=== PATIENT | female | born 1995 | race Caucasian/White ===

== ENCOUNTER 2018-10-06 18:26 | Outpatient (CLI) | payer OTHER ==
[~2018-10-06] VITALS: Ht 162.6 cm; Wt 118.1 kg
[2018-10-06 18:36] VITALS: BP 110/62
== END 2018-10-06 20:23 | disposition home or self-care (01) ==
LOC: LDOP 18:26
PROVIDERS: ATTEND Obstetrics & Gynecology
DX: O42.913 Preterm premature rupture of membranes, unspecified as to length of time between rupture and onset of labor, third trimester (principal); Z3A.33 33 weeks gestation of pregnancy
CPT/HCPCS: 59025; 84112; 99201; G0463

== ENCOUNTER 2018-11-21 21:15 | Outpatient (CLI) | payer MEDICAID, OTHER ==
[~2018-11-21] VITALS: Ht 162.6 cm; Wt 122.5 kg
[2018-11-21 21:35] VITALS: BP 132/85
== END 2018-11-21 22:18 | disposition home or self-care (01) ==
LOC: LDOP 21:15
PROVIDERS: ATTEND Obstetrics & Gynecology
DX: O26.893 Other specified pregnancy related conditions, third trimester (principal); Z3A.40 40 weeks gestation of pregnancy; R10.9 Unspecified abdominal pain
CPT/HCPCS: 59025; 99211; G0463

== ENCOUNTER 2018-11-23 08:28 | Inpatient (IN) | payer MEDICAID ==
[~2018-11-23] VITALS: Ht 162.6 cm; Wt 125.9 kg
[2018-11-23 09:00] VITALS: BP 145/81
[2018-11-23] MEDS ORDERED: D5%-LACTATED RINGERS 1,000 ML IV SCH (09:11)
[2018-11-23] MEDS ORDERED: OXYTOCIN 30U/ 0.9% NaCL 500ML 500 ML IV ONE (09:11)
[2018-11-23] MEDS ORDERED: FENTANYL/BUPIV./NS/PF 250 ML EPIDCONT SCH ×2 (09:14→16:40)
[2018-11-23] MEDS ORDERED: PREN1TAB60 PO (09:25)
[2018-11-23] MEDS ORDERED: FENTANYL PF 500 MCG, BUPIVACAINE/PF 0.5%, 30ML 62.5 ML in SODIUM CHLORIDE 0.9% 177.5 ML EPIDCONT SCH (09:30)
[2018-11-23] MEDS ORDERED: ONDANSETRON 2MG/ML, 2ML IVPush PRN (09:30)
[2018-11-23] MEDS ORDERED: FENTANYL PF 100 MCG/2ML IVPush PRN (09:30)
[2018-11-23] MEDS ORDERED: PLEASE ENTER HEIGHT AND WEIGHT MC SCH (09:30)
[2018-11-23] MEDS ORDERED: NEWBORN KIT ONE (09:36)
[2018-11-23] MEDS ORDERED: MISOPROSTOL 200 MCG TABLET ONE (09:43)
[2018-11-23] MEDS ORDERED: LIDOCAINE 1%, 20ML ONE (09:43)
[2018-11-23 09:50] LABS: BASOPHILS # (AUTO) 0.08 x10^3/uL (0-0.1); BASOPHILS % (AUTO) 1 % (0-1); EOSINOPHILS # (AUTO) 0.02 x10^3/uL (0-0.4); EOSINOPHILS % (AUTO) 0 % (1-7); LYMPHOCYTES # (AUTO) 1.79 x10^3/uL (1-3.4); LYMPHOCYTES % (AUTO) 14 % (22-44); MD NO; MEAN CORPUSCULAR HEMOGLOBIN 29.3 pg (27.0-34.8); MEAN CORPUSCULAR HGB CONC 33.3 g/dL (32.4-35.8); MONOCYTES # (AUTO) 0.68 x10^3/uL (0.2-0.8); MONOCYTES % (AUTO) 5 % (2-9); NEUTROPHILS # (AUTO) 9.98 x10^3/uL (1.8-6.8); NEUTROPHILS % (AUTO) 80 % (42-75); PLATELET COUNT 223 x10^3/uL (130-400); RED BLOOD COUNT 4.38 x10^6/uL (3.82-5.3); RED CELL DISTRIBUTION WIDTH 13.6 % (9.6-15.2)
[2018-11-23] MEDS: LACTATED RINGERS 1,000 ML IV SCH ×3 (09:50→15:51)
[2018-11-23] MEDS ORDERED: OXYTOCIN 30U/ 0.9% NaCL 500ML 500 ML ONE (10:12)
[2018-11-23 10:25] VITALS: BP 145/81
[2018-11-23] MEDS ORDERED: LACTATED RINGERS 1,000 ML IV SCH (16:40)
[2018-11-23] MEDS ORDERED: EPHEDRINE 50 MG/ML, 1ML IVPush PRN (17:00)
[2018-11-23] MEDS ORDERED: LACTATED RINGERS 1,000 ML IVBOLUS PRN (17:00)
[2018-11-23] MEDS ORDERED: NALOXONE 0.4 MG/ML, 1ML IVPush PRN (17:00)
[2018-11-24] MEDS ORDERED: METOCLOPRAMIDE 5 MG/ML, 2ML ONE (05:37)
[2018-11-24] MEDS ORDERED: SODIUM CITRATE/CITRIC ACID 15 ML UDC ONE (05:37)
[2018-11-24] MEDS ORDERED: SODIUM CITRATE/CITRIC ACID 30 ML UDC PO ONE (06:00)
[2018-11-24] MEDS ORDERED: LACTATED RINGERS 1,000 ML IVBOLUS ONE (06:00)
[2018-11-24] MEDS ORDERED: METOCLOPRAMIDE 5 MG/ML, 2ML IV ONE (06:00)
[2018-11-24] MEDS: LACTATED RINGERS 1,000 ML IV SCH ×4 (06:23→17:11)
[2018-11-24] MEDS ORDERED: LACTATED RINGERS 1,000 ML IV SCH (06:23)
[2018-11-24] MEDS ORDERED: DIPH,PERTUSS(ACELL),TET VAC/PF NC IM-VACC PRN (06:30)
[2018-11-24] MEDS ORDERED: ONDANSETRON 2MG/ML, 2ML IV PRN (06:30)
[2018-11-24] MEDS ORDERED: MISOPROSTOL 200 MCG TABLET PR PRN (06:30)
[2018-11-24] MEDS ORDERED: CALCIUM CARBONATE 500 MG TAB.CHEW PO PRN (06:30)
[2018-11-24] MEDS ORDERED: MEASLES,MUMPS&RUBELLA VACC/PF 0.5 ML SQ-VACC PRN (06:30)
[2018-11-24] MEDS ORDERED: MORPHINE SULFATE 4 MG/ML, 1ML IVPush PRN ×3 (06:30→08:20)
[2018-11-24] MEDS ORDERED: FENTANYL PF 100 MCG/2ML ONE ×2 (06:53→08:44)
[2018-11-24] MEDS ORDERED: morphine SULFATE 10 MG/ML, 1ML ONE (07:17)
[2018-11-24] MEDS ORDERED: CEFAZOLIN 1,000 MG ONE (07:17)
[2018-11-24] MEDS ORDERED: OXYTOCIN 10 UNITS/ML, 1ML ONE (07:17)
[2018-11-24] MEDS ORDERED: OXYTOCIN 30U/ 0.9% NaCL 500ML 500 ML ONE (07:20)
[2018-11-24] MEDS ORDERED: MORPHINE SULFATE 4 MG/ML, 1ML ONE (08:19)
[2018-11-24] MEDS ORDERED: OXYcodone 5 MG/5 ML ORAL.SOL UDC ONE (08:19)
[2018-11-24] MEDS ORDERED: OXYcodone 5 MG/5 ML ORAL.SOL UDC PO PRN ×2 (08:25→08:30)
[2018-11-24] MEDS ORDERED: FENTANYL PF 100 MCG/2ML IVPush PRN ×2 (08:45→08:50)
[2018-11-24] MEDS: OXYTOCIN 30U/ 0.9% NaCL 500ML 500 ML IV SCH ×2 (08:48→16:23)
[2018-11-24] MEDS: PRENATAL VIT/IRON/FA 1 EACH TABLET PO SCH (09:00)
[2018-11-24] MEDS: KETOROLAC 30 MG/1 ML IV SCH ×3 (11:04→22:27)
[2018-11-24 14:30] VITALS: BP 106/70
[2018-11-24] MEDS: OXYcodone IR 5MG TABLET PO PRN ×2 (14:50→22:28)
[2018-11-24 15:20] VITALS: BP 106/70
[2018-11-24] MEDS ORDERED: PROPOFOL 10 MG/ML, 20ML ONE (15:57)
[2018-11-24 16:27] LABS: BASOPHILS # (AUTO) 0.02 x10^3/uL (0-0.1); BASOPHILS % (AUTO) 0 % (0-1); EOSINOPHILS # (AUTO) 0.01 x10^3/uL (0-0.4); EOSINOPHILS % (AUTO) 0 % (1-7); LYMPHOCYTES # (AUTO) 1.14 x10^3/uL (1-3.4); LYMPHOCYTES % (AUTO) 7 % (22-44); MD NO; MEAN CORPUSCULAR HGB CONC 32.9 g/dL (32.4-35.8); MEAN CORPUSCULAR VOLUME 88.2 fL (80-100); MEAN PLATELET VOLUME 10.4 fL (7.4-10.4); MONOCYTES # (AUTO) 1.15 x10^3/uL (0.2-0.8); MONOCYTES % (AUTO) 7 % (2-9); NEUTROPHILS # (AUTO) 13.42 x10^3/uL (1.8-6.8); NEUTROPHILS % (AUTO) 85 % (42-75); PLATELET COUNT 194 x10^3/uL (130-400); RED BLOOD COUNT 3.66 x10^6/uL (3.82-5.3); RED CELL DISTRIBUTION WIDTH 13.6 % (9.6-15.2)
[2018-11-24 20:00] VITALS: BP 122/81
[2018-11-24] MEDS: DOCUSATE 100 MG CAPSULE PO PRN (22:27)
[2018-11-24 23:00] VITALS: BP 115/76
[2018-11-24] MEDS: SIMETHICONE 80 MG CHEW TAB PO PRN (23:09)
[2018-11-25] MEDS: LACTATED RINGERS 1,000 ML IV SCH ×2 (01:11→02:23)
[2018-11-25] MEDS: OXYTOCIN 30U/ 0.9% NaCL 500ML 500 ML IV SCH (02:23)
[2018-11-25 03:30] VITALS: BP 110/70
[2018-11-25] MEDS: OXYcodone IR 5MG TABLET PO PRN ×2 (03:32→08:19)
[2018-11-25] MEDS: SIMETHICONE 80 MG CHEW TAB PO PRN ×2 (03:32→08:18)
[2018-11-25] MEDS: KETOROLAC 30 MG/1 ML IV SCH ×3 (06:21→07:30)
[2018-11-25 07:48] VITALS: BP 107/71
[2018-11-25] MEDS: DOCUSATE 100 MG CAPSULE PO PRN ×2 (08:18→20:50)
[2018-11-25] MEDS: PRENATAL VIT/IRON/FA 1 EACH TABLET PO SCH (08:19)
[2018-11-25] MEDS: IBUPROFEN 600 MG TABLET PO PRN ×2 (13:22→20:50)
[2018-11-25] MEDS: OXYcodone/APAP 5/325MG TABLET PO PRN ×2 (13:22→18:21)
[2018-11-25 19:25] VITALS: BP 103/65
[2018-11-26] MEDS: OXYcodone/APAP 5/325MG TABLET PO PRN ×2 (00:53→12:35)
[2018-11-26] MEDS: SIMETHICONE 80 MG CHEW TAB PO PRN ×2 (01:18→12:35)
[2018-11-26] MEDS: IBUPROFEN 600 MG TABLET PO PRN ×2 (07:06→15:07)
[2018-11-26] MEDS: OXYcodone IR 5MG TABLET PO PRN (07:06)
[2018-11-26 08:17] VITALS: BP 110/72
[2018-11-26] MEDS: DOCUSATE 100 MG CAPSULE PO PRN (08:54)
[2018-11-26] MEDS: PRENATAL VIT/IRON/FA 1 EACH TABLET PO SCH (08:54)
[2018-11-26] MEDS ORDERED: IBUP-1222 PO (15:21)
[2018-11-26] MEDS ORDERED: OXYC-302 PO (15:23)
== END 2018-11-26 16:51 | disposition home or self-care (01) | DRG 788 ==
LOC: LDOP 08:28 → LDIP 09:19 → 2NW 11-24 10:09
PROVIDERS: ADMIT Obstetrics & Gynecology; ATTEND Obstetrics & Gynecology
PROC: 10D00Z1 Extraction of Products of Conception, Low, Open Approach (ICD-10-PCS; principal; 2018-11-24)
DX: O99.214 Obesity complicating childbirth (principal); Z37.0 Single live birth; O32.4XX0 Maternal care for high head at term, not applicable or unspecified; E66.01 Morbid (severe) obesity due to excess calories; O76 Abnormality in fetal heart rate and rhythm complicating labor and delivery; O99.52 Diseases of the respiratory system complicating childbirth; O77.0 Labor and delivery complicated by meconium in amniotic fluid; J45.909 Unspecified asthma, uncomplicated; Z3A.40 40 weeks gestation of pregnancy; Z82.49 Family history of ischemic heart disease and other diseases of the circulatory system; Z80.41 Family history of malignant neoplasm of ovary; Z80.3 Family history of malignant neoplasm of breast; Z88.0 Allergy status to penicillin; Z88.1 Allergy status to other antibiotic agents
CPT/HCPCS: 36415; J7121; 82803; 85025; 86850; 86900; G0378; J0690; J1885; J2704; J3010; J3490; J2270; J2590; J2765; J7050; J7120